=== PATIENT | male | born 1975 | race Caucasian/White ===

== ENCOUNTER 2023-06-20 08:58 | Emergency (ER) | payer BC ==
[2023-06-20] MEDS ORDERED: Sodium Chloride 0.9% 10 ML Syringe FLUSH PRN (09:09)
[2023-06-20 09:29] LABS: HEMATOCRIT 44.9 % (40.0-54.0); HEMOGLOBIN 16.4 g/dL (14.0-18.0); MEAN CORPUSCULAR HEMOGLOBIN 38.1 pg (27.0-34.0); MEAN CORPUSCULAR HGB CONC 36.5 g/dL (33.0-35.0); MEAN CORPUSCULAR VOLUME 104.2 fL (80-100); PLATELET COUNT,PLT 41 10^3/uL (150-450); RED BLOOD CELL COUNT 4.31 10^6/uL (4.6-6.2); WHITE BLOOD CELL COUNT,WBC 5.5 10^3/uL (5.0-10.0)
[2023-06-20 09:41] LABS: LYMPHOCYTES PERCENT AUTO 10.4 % (20.5-50.1); NEUTROPHILS PERCENT AUTO 73.5 % (42.2-75.2)
[2023-06-20 09:42] LABS: BASOPHILS PERCENT AUTO 0.4 % (0.0-1.0); EOSINOPHILS PERCENT AUTO 0.7 % (1.0-3.0)
[2023-06-20 09:48] LABS: A/G RATIO 0.8; ALANINE AMINOTRANSFERASE,ALT 83 U/L (16-63); ALBUMIN 3.6 g/dL (3.4-5.0); ALKALINE PHOSPHATASE 122 U/L (46-116); AMYLASE 34 U/L (25-115); ANION GAP 14.8 mEq/L (7-13); ASPARTATE AMNIOTRANSFERASE,AST 116 U/L (15-37); BILIRUBIN TOTAL 2.5 mg/dL (0.2-1.0); BLOOD UREA NITROGEN,BUN 3 mg/dL (7-18); BUN/CREATININE RATIO 3.9 (No establ ref range); C-REACTIVE PROTEIN < 0.50 ng/dL (<=0.50); CALCIUM 9.3 mg/dL (8.5-10.1); CARBON DIOXIDE,CO2 28 mmol/L (21-32); CHLORIDE,CL 99 mmol/L (98-107); CREATININE 0.76 mg/dL (0.70-1.30); EST CRCL DRUG DOSING (CG) 114.76 mL/min; ESTIMATED GFR 113 mL/min (>=60); ETHANOL BLOOD MEDICAL 49 mg/dL (0); GLUCOSE RANDOM 115 mg/dL (70-99); LIPASE 112 U/L (16-77); MAGNESIUM 1.5 mg/dL (1.8-2.4); POTASSIUM,K 3.8 mmol/L (3.5-5.1); PROTEIN TOTAL,TP 8.2 g/dL (6.4-8.2); SODIUM,NA 138 mmol/L (136-145)
[2023-06-20 09:54] LABS: LACTIC ACID 2.6 mmol/L (0.4-2.0)
[2023-06-20 09:56] LABS: PROTHROMBIN TIME 10.3 SEC (9.0-12.0); PTT,PARTIAL THROMBOPLSTIN TIME 23.8 SEC (22.0-34.0)
[2023-06-20 10:01] LABS: BASOPHILS PERCENT MAN 1; EOSINOPHILS PERCENT MAN 1 % (1-3); LYMPHOCYTES PERCENT MAN 12 % (20-50); MONOCYTES PERCENT MAN 17 % (2-8); MYELOCYTE PERCENT MAN 2; SEG NEUTROPHILS PERCENT MAN 67 % (42-75)
[2023-06-20 10:02] LABS: ATYPICAL LYMPHOCYTES FEW; PLATELET COUNT ESTIMATE MARKED DEC; STOMATOCYTES 2+ MODERATE
[2023-06-20 10:06] LABS: CORONAVIRUS COVID-19 NAA NEGATIVE (NEGATIVE); INFLUENZA A NAA NEGATIVE (NEGATIVE); INFLUENZA B NAA NEGATIVE (NEGATIVE); RESPIRATORY SYNCYTIAL VIR NAA NEGATIVE (NEGATIVE)
[2023-06-20] MEDS ORDERED: Magnesium Sulfate/Water 2 GM in Premix Bag 1 BAG IV ONE (10:11)
[2023-06-20] MEDS ORDERED: Lactated Ringers 1,000 ML IV ONE (10:11)
[2023-06-20] MEDS ORDERED: Magnesium Sulfate/Water 50 ML ONE (10:21)
== END 2023-06-20 11:56 | disposition home or self-care (01) ==
LOC: DL.ED 08:58
DX: R25.1 Tremor, unspecified (principal); E83.42 Hypomagnesemia; R74.01 Elevation of levels of liver transaminase levels; D69.6 Thrombocytopenia, unspecified; E80.7 Disorder of bilirubin metabolism, unspecified; R74.8 Abnormal levels of other serum enzymes; R19.7 Diarrhea, unspecified; I10 Essential (primary) hypertension; Y90.2 Blood alcohol level of 40-59 mg/100 ml; Z20.822 Contact with and (suspected) exposure to COVID-19; Z88.0 Allergy status to penicillin
CPT/HCPCS: 0241U; 36415; 80053; 80307; 82140; 82150; 83605; 83690; 83735; 85025; 85610; 85730; 86140; 87040; 96365; 99284; 99284-25; J3475; J3490; J7120